=== PATIENT | female | born 1995 | race Caucasian/White ===

== ENCOUNTER 2022-04-24 14:47 | Emergency (ER) | payer MEDICAID ==
[~2022-04-24] VITALS: Ht 162.6 cm; Wt 113.0 kg
[2022-04-24 15:13] VITALS: BP 118/89
[2022-04-24] MEDS ORDERED: CIPHCO LEFT EAR ×3 (16:18→16:39)
[2022-04-24] MEDS ORDERED: IBUP-2029 MT ×3 (16:18→16:39)
== END 2022-04-24 18:41 | disposition home or self-care (01) ==
LOC: ER 16:38
DX: H92.03 Otalgia, bilateral (principal)
CPT/HCPCS: 99283

== ENCOUNTER 2023-11-24 10:58 | Emergency (ER) | payer MEDICAID, OTHER ==
[~2023-11-24] VITALS: Ht 162.6 cm; Wt 113.0 kg
[~2023-11-24 10:58] MED LIST: CIPHCO LEFT EAR; IBUP-2029 MT
[2023-11-24 11:04] VITALS: O2SAT 98
[2023-11-24] MEDS: IBUPROFEN 600MG TABLET PO ONE (13:14)
[2023-11-24 14:45] VITALS: BP 122/60; PULSE 68; RESP 16; TEMP 98.2
== END 2023-11-24 14:46 | disposition home or self-care (01) ==
LOC: ER 10:58
DX: S40.012A Contusion of left shoulder, initial encounter (principal); W18.2XXA Fall in (into) shower or empty bathtub, initial encounter; Y93.89 Activity, other specified; Y92.89 Other specified places as the place of occurrence of the external cause; Y99.8 Other external cause status
CPT/HCPCS: 73030; 99283

== ENCOUNTER 2024-08-12 08:04 | Emergency (ER) | payer OTHER ==
[~2024-08-12] VITALS: Ht 162.6 cm; Wt 118.0 kg
[2024-08-12 08:13] VITALS: BP 132/64; TEMP 36.8; O2SAT 98
[2024-08-12 08:15] VITALS: PULSE 82; RESP 18; O2SAT 98
[2024-08-12] MEDS: ACETAMINOPHEN 325MG TABLET PO ONE (08:30)
[2024-08-12] MEDS ORDERED: ACET-2708 MT (09:10)
== END 2024-08-12 09:28 | disposition home or self-care (01) ==
LOC: ER 08:04
DX: M25.532 Pain in left wrist (principal); M25.572 Pain in left ankle and joints of left foot
CPT/HCPCS: 73110; 73610; 99284; A4606

== ENCOUNTER 2024-08-28 06:34 | Emergency (ER) | payer OTHER ==
[~2024-08-28] VITALS: Ht 162.6 cm; Wt 113.0 kg
[~2024-08-28 06:34] MED LIST changes: +ACET-2708 MT
[2024-08-28 06:42] VITALS: O2SAT 100
[2024-08-28 06:45] VITALS: BP 135/67; PULSE 68; RESP 15; TEMP 36.7; O2SAT 99
[2024-08-28] MEDS ORDERED: CIPHCO RIGHT EAR (08:25)
== END 2024-08-28 08:34 | disposition home or self-care (01) ==
LOC: ER 06:34
DX: H60.91 Unspecified otitis externa, right ear (principal); R03.0 Elevated blood-pressure reading, without diagnosis of hypertension; Z98.890 Other specified postprocedural states; Z79.899 Other long term (current) drug therapy
CPT/HCPCS: 99283

== ENCOUNTER 2025-03-31 13:36 | Emergency (ER) | payer OTHER ==
[~2025-03-31] VITALS: Ht 165.1 cm; Wt 105.0 kg
[~2025-03-31 13:36] MED LIST changes: +CIPHCO RIGHT EAR; +IBUP-1455 MT; -IBUP-2029 MT
[2025-03-31 14:30] VITALS: O2SAT 98
[2025-03-31] MEDS: HYDROCODONE/ACETAMINOPHEN 5/325MG TABLET PO ONE (14:56)
[2025-03-31] MEDS ORDERED: NAPR-681 PO (16:58)
[2025-03-31] MEDS ORDERED: HYDR-4001 MT (16:58)
[2025-03-31 17:13] VITALS: BP 120/74; PULSE 64; RESP 18; TEMP 36.8; O2SAT 100
== END 2025-03-31 17:16 | disposition home or self-care (01) ==
LOC: ER 13:36
DX: S00.83XA Contusion of other part of head, initial encounter (principal); R68.84 Jaw pain; X58.XXXA Exposure to other specified factors, initial encounter; Y93.89 Activity, other specified; Y92.89 Other specified places as the place of occurrence of the external cause; Y99.8 Other external cause status
CPT/HCPCS: 70486; 81025; 99284